=== PATIENT | male | born 1970 | race Caucasian/White ===

== ENCOUNTER 2019-01-24 14:17 | Emergency (ER) | payer SELFPAY ==
[2019-01-24] MEDS ORDERED: LIDOCAINE 1% (MDV) 10 ML INJ INJ (17:01)
[2019-01-24] MEDS: LIDOCAINE 1% (MDV) 20 ML INJ SC (17:13)
[2019-01-24] MEDS: KETOROLAC 30 MG INJ IM (17:13)
== END 2019-01-24 19:10 | disposition home or self-care (01) ==
LOC: FTE 14:17
DX: S61.211A Laceration without foreign body of left index finger without damage to nail, initial encounter (principal); W26.0XXA Contact with knife, initial encounter; Y92.89 Other specified places as the place of occurrence of the external cause
CPT/HCPCS: 12001; 96372; 99284-25

== ENCOUNTER 2019-01-26 11:53 | Emergency (ER) | payer SELFPAY ==
[2019-01-26] MEDS: DIPHTH/TET/ACEL PERTUSS (ADULT) 0.5 ML VIAL IM* (13:45)
== END 2019-01-26 13:53 | disposition home or self-care (01) ==
LOC: FTE 11:53
DX: Z48.01 Encounter for change or removal of surgical wound dressing (principal)
CPT/HCPCS: 90471; 90715; 99283-25